=== PATIENT | female | born 1945 | race Two or more races ===

== ENCOUNTER 2023-01-23 04:25 | Emergency (ER) | payer SELFPAY ==
[~2023-01-23] VITALS: Ht 165.1 cm; Wt 68.0 kg
[2023-01-23 05:09] VITALS: TEMP 98
[2023-01-23 05:22] VITALS: BP 141/67; PULSE 85; RESP 16
[2023-01-23 06:13] LABS: BASOPHILS % (AUTO) 0.3 % (0.0-2.0); EOSINOPHILS % (AUTO) 0 % (1.0-6.0); HEMATOCRIT 33.1 % (36-46); HEMOGLOBIN 11.1 g/dL (12.0-16.0); LYMPHOCYTES # (AUTO) 0.7 K/uL (1.0-4.8); LYMPHOCYTES % (AUTO) 7.7 % (22.0-44.0); MEAN CORPUSCULAR HEMOGLOBIN 31.3 pg (26.0-34.0); MEAN CORPUSCULAR HGB CONC 33.4 G/dL (31.0-37.0); MEAN CORPUSCULAR VOLUME 94 fL (80-100); MONOCYTES # (AUTO) 0.5 K/uL (0.1-1.0); MONOCYTES % (AUTO) 5.2 % (2.0-9.0); NEUTROPHILS # (AUTO) 7.9 K/uL (1.8-7.7); PLATELET COUNT (AUTO) 231 K/uL (150-450); RED BLOOD CELL COUNT(AUTO) 3.53 MIL/uL (4.00-5.20); RED CELL DISTRIBUTION WIDTH 14.7 % (11.5-14.5)
[2023-01-23 06:28] LABS: ANION GAP 12 mmol/L (8-16); CALCIUM, TOTAL 8.9 mg/dL (8.8-10.5); CARBON DIOXIDE 23 mmol/L (22-29); CHLORIDE 99 mmol/L (98-107); CREATININE 0.71 mg/dL (0.60-1.30); GLOMERULAR FILTR. RATE CALC > 60 mL/min (>60); GLUCOSE,RANDOM 177 mg/dL (70-110); SODIUM SERUM 134 mmol/L (136-145)
[2023-01-23 06:33] LABS: ALANINE AMINOTRANSFERASE 18 U/L (12-78); ALBUMIN 3.6 g/dL (3.4-5.0); ALKALINE PHOSPHATASE 68 U/L (46-116); ASPARTATE AMINOTRANSFERASE 26 U/L (15-37); BILIRUBIN,TOTAL 0.3 mg/dL (0.1-1.0); TOTAL PROTEIN, SERUM 7.1 g/dL (6.4-8.2)
[2023-01-23 06:51] LABS: NEUTROPHILS % (AUTO) 86.8 % (40.0-70.0)
[2023-01-23] MEDS ORDERED: PIOG15TA6 PO (07:04)
[2023-01-23] MEDS ORDERED: HYDR25TA2 PO (07:04)
[2023-01-23] MEDS ORDERED: antihypertensive PO (07:04)
[2023-01-23] MEDS ORDERED: FERR325T27 PO (07:04)
== END 2023-01-23 07:34 | disposition left against medical advice (07) ==
LOC: EMS 04:25
DX: E16.2 Hypoglycemia, unspecified (principal); R77.8 Other specified abnormalities of plasma proteins
CPT/HCPCS: 80053; 84484; 85025; 93005; 99284